=== PATIENT | female | born 1940 | race Caucasian/White ===

== ENCOUNTER 2016-08-28 08:49 | Emergency (ER) | payer OTHER ==
[~2016-08-28] VITALS: Ht 157.5 cm; Wt 92.4 kg
[~2016-08-28 08:49] MED LIST: ADVIL200 MG PO; Aspirin E.C. PO; CARVEDILOL6.25 MG PO; CRANBERRY TABL1 EACH PO; LO-DOSE ASPIRIN81 M2 PO; NOHOMEMEDS; PRAVASTATIN SOD40 MG PO
[2016-08-28 09:44] LABS: HEMATOCRIT 42.3 % (36.0-46.0); MCH 29.4 PG (29.0-34.0); MCHC 32.9 G/DL (30.0-36.0); MCV 89.6 FL (83-99); MEAN PLAT.VOLUME 9.9 uM^3 (9.5-12.4); PLATELET COUNT 199 K/uL (156-360); RBC DIS.WIDTH-CV 13.3 % (11.8-14.6); RBC DIS.WIDTH-SD 43.8 % (39-53); RED BLOOD COUNT 4.72 M/uL (3.80-5.20); WHITE BLOOD COUNT 6.2 K/uL (4.1-10.2)
[2016-08-28 10:17] LABS: ANION GAP 9 MEQ/L (2-14); CHLORIDE 103 mEq/L (99-109); GLUCOSE 122 mg/dL (70-99); POTASSIUM 4.2 mEq/L (3.7-5.4); SODIUM 142 mEq/L (136-147); TROP-I INTERPRETATION NEGATIVE; TROPONIN-I < 0.01 ng/mL (0.0-0.30)
[2016-08-28 10:20] LABS: GFR ESTIMATE (CALCULATED) > 59 mL/min/
[2016-08-28 10:21] LABS: UREA NITROGEN (BUN) 16 mg/dL (9-23)
[2016-08-28 10:22] LABS: TOTAL BILIRUBIN 0.4 mg/dL (0.0-1.0)
[2016-08-28 10:23] LABS: ALKALINE PHOSPHATASE 52 IU/L (3-129)
[2016-08-28 10:26] LABS: DIRECT BILIRUBIN 0.2 mg/dL (0.0-0.3)
[2016-08-28 10:27] LABS: LIPASE 21 U/L (1.0-51.0)
[2016-08-28 14:16] LABS: TROP-I INTERPRETATION NEGATIVE; TROPONIN-I < 0.01 ng/mL (0.0-0.30)
[2016-08-28] MEDS ORDERED: PROTONIX40 MG PO (14:48)
[2016-08-28 15:11] VITALS: BP 153/76
== END 2016-08-28 15:11 | disposition home or self-care (01) ==
LOC: EME 08:49
PROVIDERS: Emergency Medicine
DX: R10.13 Epigastric pain (principal); E78.5 Hyperlipidemia, unspecified; I10 Essential (primary) hypertension; Z85.41 Personal history of malignant neoplasm of cervix uteri; Z79.82 Long term (current) use of aspirin; Z87.891 Personal history of nicotine dependence
CPT/HCPCS: 71020; 80048; 80076; 83690; 84484; 85027; 93005; 99281; 99284

== ENCOUNTER → 2016-08-30 | Outpatient (CLI) | payer OTHER ==
[~2016-08-30] VITALS: Ht 157.5 cm; Wt 93.0 kg
[~2016-08-30] MED LIST changes: +PROTONIX40 MG PO
== END | disposition home or self-care (01) ==
LOC: AMB 09:38 → OPR 10:00 → AMB 12:00
DX: Z12.11 Encounter for screening for malignant neoplasm of colon (principal); K56.60 Unspecified intestinal obstruction; Z92.3 Personal history of irradiation; Z85.41 Personal history of malignant neoplasm of cervix uteri; D12.8 Benign neoplasm of rectum; Z86.010 Personal history of colon polyps; R15.9 Full incontinence of feces; K62.5 Hemorrhage of anus and rectum; Z87.891 Personal history of nicotine dependence; Z79.82 Long term (current) use of aspirin
CPT/HCPCS: 88305; J3010

== ENCOUNTER 2016-10-19 10:51 | Day surgery (SDC) | payer OTHER ==
[~2016-10-19] VITALS: Ht 157.5 cm; Wt 93.6 kg
[2016-10-19 11:36] VITALS: BP 112/55
[2016-10-19 16:10] VITALS: BP 127/51
[2016-10-19 17:16] VITALS: BP 123/53
== END 2016-10-19 17:20 | disposition home or self-care (01) ==
LOC: SDC 10:51
PROC: 0DJD8ZZ Inspection of Lower Intestinal Tract, Via Natural or Artificial Opening Endoscopic (ICD-10-PCS; principal; 2016-10-19)
DX: D49.0 Neoplasm of unspecified behavior of digestive system (principal); D37.5 Neoplasm of uncertain behavior of rectum; Z53.09 Procedure and treatment not carried out because of other contraindication; Z86.010 Personal history of colon polyps; K62.5 Hemorrhage of anus and rectum; Z85.41 Personal history of malignant neoplasm of cervix uteri; I10 Essential (primary) hypertension; E78.5 Hyperlipidemia, unspecified; K21.9 Gastro-esophageal reflux disease without esophagitis; Z79.82 Long term (current) use of aspirin; Z87.891 Personal history of nicotine dependence; E66.9 Obesity, unspecified; Z68.38 Body mass index [BMI] 38.0-38.9, adult
CPT/HCPCS: J0330; J0461; J2250; J2405; J3010

== ENCOUNTER 2016-11-14 08:30 | Emergency (ER) | payer OTHER ==
[~2016-11-14] VITALS: Ht 157.5 cm; Wt 93.4 kg
[2016-11-14 08:35] VITALS: BP 138/74
[2016-11-14] MEDS ORDERED: ULTRAM50 MG PO (10:13)
== END 2016-11-14 10:23 | disposition home or self-care (01) ==
LOC: EME 08:30
DX: S40.012A Contusion of left shoulder, initial encounter (principal); S00.81XA Abrasion of other part of head, initial encounter; W01.0XXA Fall on same level from slipping, tripping and stumbling without subsequent striking against object, initial encounter; I10 Essential (primary) hypertension; E78.5 Hyperlipidemia, unspecified; Z87.891 Personal history of nicotine dependence
CPT/HCPCS: 73030; 73060; 99281; 99284

== ENCOUNTER → 2017-02-14 | Outpatient (CLI) | payer OTHER ==
[~2017-02-14] MED LIST changes: +ULTRAM50 MG PO
== END | disposition home or self-care (01) ==
LOC: CDC 09:37
DX: Z01.810 Encounter for preprocedural cardiovascular examination (principal)
CPT/HCPCS: 93000